=== PATIENT | female | born 1950 | race Caucasian/White ===

== ENCOUNTER 2017-12-10 13:04 | Day surgery (SDC) | payer MEDICARE, OTHER ==
[~2017-12-10] VITALS: Ht 162.6 cm; Wt 84.5 kg
[~2017-12-10 13:04] MED LIST: Ativan0.5 MG SL
[2017-12-10] MEDS ORDERED: RANI150 (13:22)
== END 2017-12-10 16:15 | disposition home or self-care (01) ==
LOC: ORSCSDS 13:04
PROVIDERS: Obstetrics & Gynecology
PROC: 0UDB7ZX Extraction of Endometrium, Via Natural or Artificial Opening, Diagnostic (ICD-10-PCS; principal; 2017-12-10 14:30)
PROC: 0UJD8ZZ Inspection of Uterus and Cervix, Via Natural or Artificial Opening Endoscopic (ICD-10-PCS; principal; 2017-12-10 14:30)
DX: N95.0 Postmenopausal bleeding (principal)
CPT/HCPCS: 88305; J0690; J1100; J1885; J2250; J2405; J2710; J7120

== ENCOUNTER → 2019-05-07 | Outpatient (CLI) | payer OTHER ==
[~2019-05-07] MED LIST changes: +RANI150
== END | disposition home or self-care (01) ==
LOC: LAB SHORT 08:19 → PLD 08:19
DX: D48.5 Neoplasm of uncertain behavior of skin (principal)
CPT/HCPCS: 88305

== ENCOUNTER → 2019-05-14 | Outpatient (CLI) | payer OTHER | END | disposition home or self-care (01) | LOC: LAB SHORT 07:49 → PLD 07:49 | DX: D48.5 Neoplasm of uncertain behavior of skin (principal) | CPT/HCPCS: 88305 ==

== ENCOUNTER 2019-12-12 09:25 | Day surgery (SDC) | payer OTHER ==
[~2019-12-12] VITALS: Ht 162.6 cm; Wt 85.2 kg
[~2019-12-12 09:25] MED LIST changes: +A AND D OINTM42.5 GM; +ALLEGRA ALLERG180 MG PO; +BIEST/PROGESTERONE; +BROMELAIN; +CALCIUM PO; +CENTRUM SILVER1 EAC2; +COPPER2 MG PO; +COQ1050 MG PO; +CYAN500; +DGL; +FLAXSEED OIL; +MAGNESIUM OXIDE PO; +VITAMIN A; +VITAMIN D325 MCG PO; +ZANTAC PO; +ZINC CITRATE; +[UNRECOGNIZED DRUG - OTHER]; +[UNRECOGNIZED DRUG - OTHER]; +[UNRECOGNIZED DRUG - OTHER]
[2019-12-12] MEDS ORDERED: ESOM20 PO (09:58)
--- NOTE | 2019-12-12 10:10 | NUR ---
Ambulatory in Day Surgery. History, Chart, Medications and Allergies reviewed before start of procedure.Patient confirms NPO status and agrees with scheduled surgery. Patient reports completing Chlorhexadine shower X2 prior to admission to hospital.Lungs clear T/O to Auscultation. Patient States Post-Procedure ride home has been arranged WITH
[2019-12-12 10:31] LABS: BASOPHILS ABSOLUTE AUTO 0.08 K/mm3 (0.00-0.23); BASOPHILS PERCENT AUTO 1 % (0-2); EOSINOPHILS ABSOLUTE AUTO 0.24 K/mm3 (0.00-0.68); EOSINOPHILS PERCENT AUTO 3 % (0-6); Hematocrit 47.8 % (33.0-51.0); Hemoglobin 15.7 g/dL (11.5-16.0); IMMATURE GRAN ABSOLUTE AUTO 0.01 K/mm3 (0.00-0.10); IMMATURE GRAN PERCENT AUTO 0 % (0-1); LYMPHOCYTES ABSOLUTE AUTO 1.73 K/mm3 (0.84-5.20); LYMPHOCYTES PERCENT AUTO 23 % (21-46); MONOCYTES ABSOLUTE AUTO 0.56 K/mm3 (0.16-1.47); MONOCYTES PERCENT AUTO 7 % (4-13); Mean Corpuscular HGB 30.6 pg (26.0-34.0); Mean Corpuscular HGB Conc 32.8 g/dL (31.5-36.5); Mean Corpuscular Volume 93 fL (80-100); Mean Platelet Volume 8.8 fL (9.1-12.4); NEUTROPHILS ABSOLUTE AUTO 4.95 K/mm3 (1.96-9.15); NEUTROPHILS PERCENT AUTO 65 % (41-73); Platelet Count 252 K/mm3 (150-400); RDW Coefficient Variation 12.4 % (11.7-14.2); RDW Standard Deviation 42.7 fL (35.1-46.3); Red Blood Cell Count 5.13 M/mm3 (3.80-5.20); White Blood Cell Count 7.57 K/mm3 (4.00-11.30)
--- NOTE | 2019-12-12 13:30 | NUR ---
Patient up to Ambulate independently. Gait steady. Discharge instructions reviewed with patient. Patient verbalizes understanding. Copy given to patient to take home. Discharged via wheelchair to private car for ride home. PT A&OX4, VSS, ON RA, TCDB EDU & ENC TO CONTINUE AT HOME, LEILA PO ICE WATER AND JELLO. IV DC'D.
== END 2019-12-12 23:15 | disposition home or self-care (01) ==
LOC: ORSCMMR 09:25 → ORD 11:15 → ORSCMMR 11:15
PROVIDERS: Obstetrics & Gynecology
PROC: 0UDB8ZX Extraction of Endometrium, Via Natural or Artificial Opening Endoscopic, Diagnostic (ICD-10-PCS; principal; 2019-12-12 11:15)
DX: N95.0 Postmenopausal bleeding (principal); N84.0 Polyp of corpus uteri; R10.2 Pelvic and perineal pain; C54.1 Malignant neoplasm of endometrium; Z79.899 Other long term (current) drug therapy
CPT/HCPCS: 85025; 88305; J0690; J1100; J1885; J2250; J2405; J2704; J2765; J3010; J7120

== ENCOUNTER 2020-01-26 04:40 | Emergency (ER) | payer OTHER ==
[~2020-01-26] VITALS: Ht 160 cm; Wt 81.7 kg
[~2020-01-26 04:40] MED LIST changes: +ESOM20 PO
[2020-01-26 05:10] LABS: BASOPHILS ABSOLUTE AUTO 0.07 K/mm3 (0.00-0.23); BASOPHILS PERCENT AUTO 1 % (0-2); EOSINOPHILS ABSOLUTE AUTO 0.12 K/mm3 (0.00-0.68); EOSINOPHILS PERCENT AUTO 1 % (0-6); Hematocrit 42.8 % (33.0-51.0); Hemoglobin 13.9 g/dL (11.5-16.0); IMMATURE GRAN ABSOLUTE AUTO 0.04 K/mm3 (0.00-0.10); IMMATURE GRAN PERCENT AUTO 0 % (0-1); LYMPHOCYTES ABSOLUTE AUTO 1.31 K/mm3 (0.84-5.20); LYMPHOCYTES PERCENT AUTO 13 % (21-46); MONOCYTES ABSOLUTE AUTO 0.77 K/mm3 (0.16-1.47); MONOCYTES PERCENT AUTO 8 % (4-13); Mean Corpuscular HGB 30.2 pg (26.0-34.0); Mean Corpuscular HGB Conc 32.5 g/dL (31.5-36.5); Mean Corpuscular Volume 93 fL (80-100); Mean Platelet Volume 8.8 fL (9.1-12.4); NEUTROPHILS ABSOLUTE AUTO 7.59 K/mm3 (1.96-9.15); NEUTROPHILS PERCENT AUTO 77 % (41-73); Platelet Count 258 K/mm3 (150-400); RDW Coefficient Variation 12.1 % (11.7-14.2); RDW Standard Deviation 41.5 fL (35.1-46.3)
[2020-01-26 05:31] LABS: Alanine Aminotransfer (ALT/SGP 20 U/L (12-78); Albumin, Blood 2.8 g/dL (3.4-5.0); Albumin/Globulin Ratio 0.6 (0.8-1.8); Alk Phos 61 U/L (50-136); Anion Gap 4 mmol/L (6-16); Aspartate Aminotrans (AST/SGOT 16 U/L (12-37); Bilirubin, Total 0.4 mg/dL (0.1-1.0); Blood Urea Nitrogen 9 mg/dL (8-24); CO2, Blood 30 mmol/L (21-32); Calcium, Blood 8.6 mg/dL (8.5-10.1); Chloride, Blood 105 mmol/L (98-108); Creatinine, Blood 0.75 mg/dL (0.40-1.00); Globulin, Blood 4.4 g/dL (2.2-4.0); Glomerular Filtration Rate >60 (60-); Glucose, Blood 101 mg/dL (70-99); Potassium, Blood 3.6 mmol/L (3.5-5.5); Sodium, Blood 139 mmol/L (136-145); Total Protein, Blood 7.2 g/dL (6.4-8.2); Troponin I <0.015 ng/mL (0.000-0.040)
[2020-01-26 05:33] LABS: D-Dimer, Quantitative 5.49 mg/L FEU (0.00-0.52); Prothrombin Time Results 10.7 Sec (9.7-11.5)
== END 2020-01-26 07:51 | disposition home or self-care (01) ==
LOC: ER 04:40
PROVIDERS: Emergency Medicine
DX: R07.9 Chest pain, unspecified (principal); I10 Essential (primary) hypertension; K21.9 Gastro-esophageal reflux disease without esophagitis; Z88.1 Allergy status to other antibiotic agents; Z88.8 Allergy status to other drugs, medicaments and biological substances; Z79.899 Other long term (current) drug therapy
CPT/HCPCS: 36415; 71046; 71260; 80053; 83690; 84484; 85025; 85379; 85610; 93005; 93010; 99284-25; Q9967

== ENCOUNTER 2020-03-15 05:17 | Emergency (ER) | payer OTHER ==
[~2020-03-15] VITALS: Ht 160 cm; Wt 77.1 kg
[2020-03-15 06:15] LABS: BASOPHILS ABSOLUTE AUTO 0.06 K/mm3 (0.00-0.23); BASOPHILS PERCENT AUTO 1 % (0-2); EOSINOPHILS ABSOLUTE AUTO 0.13 K/mm3 (0.00-0.68); EOSINOPHILS PERCENT AUTO 1 % (0-6); Hematocrit 45.2 % (33.0-51.0); Hemoglobin 14.7 g/dL (11.5-16.0); IMMATURE GRAN ABSOLUTE AUTO 0.04 K/mm3 (0.00-0.10); IMMATURE GRAN PERCENT AUTO 0 % (0-1); LYMPHOCYTES ABSOLUTE AUTO 1.48 K/mm3 (0.84-5.20); LYMPHOCYTES PERCENT AUTO 14 % (21-46); MONOCYTES ABSOLUTE AUTO 0.79 K/mm3 (0.16-1.47); MONOCYTES PERCENT AUTO 7 % (4-13); Mean Corpuscular HGB 30.2 pg (26.0-34.0); Mean Corpuscular HGB Conc 32.5 g/dL (31.5-36.5); Mean Corpuscular Volume 93 fL (80-100); Mean Platelet Volume 8.8 fL (9.1-12.4); NEUTROPHILS PERCENT AUTO 77 % (41-73); Platelet Count 210 K/mm3 (150-400); Red Blood Cell Count 4.86 M/mm3 (3.80-5.20)
[2020-03-15 06:40] LABS: Alanine Aminotransfer (ALT/SGP 26 U/L (12-78); Albumin, Blood 3.3 g/dL (3.4-5.0); Albumin/Globulin Ratio 1.1 (0.8-1.8); Alk Phos 64 U/L (50-136); Anion Gap 5 mmol/L (6-16); Aspartate Aminotrans (AST/SGOT 12 U/L (12-37); Bilirubin, Total 0.4 mg/dL (0.1-1.0); Blood Urea Nitrogen 9 mg/dL (8-24); Bun/Creatinine Ratio 11.9 (12.0-20.0); CO2, Blood 29 mmol/L (21-32); Calcium, Blood 8.5 mg/dL (8.5-10.1); Chloride, Blood 108 mmol/L (98-108); Creatinine, Blood 0.76 mg/dL (0.40-1.00); Globulin, Blood 3.1 g/dL (2.2-4.0); Glomerular Filtration Rate >60 (60-); Glucose, Blood 116 mg/dL (70-99); Potassium, Blood 3.8 mmol/L (3.5-5.5); Sodium, Blood 142 mmol/L (136-145); Total Protein, Blood 6.4 g/dL (6.4-8.2)
[2020-03-15] MEDS ORDERED: TRAZ50 PO (06:56)
== END 2020-03-15 07:42 | disposition home or self-care (01) ==
LOC: ER 05:17
PROVIDERS: Emergency Medicine
DX: G47.00 Insomnia, unspecified (principal); F41.9 Anxiety disorder, unspecified; I10 Essential (primary) hypertension; K21.9 Gastro-esophageal reflux disease without esophagitis; Z88.0 Allergy status to penicillin; Z88.8 Allergy status to other drugs, medicaments and biological substances; Z79.899 Other long term (current) drug therapy; Z90.710 Acquired absence of both cervix and uterus
CPT/HCPCS: 36415; 80053; 84443; 85025; 99283